=== PATIENT | female | born 1950 | race Caucasian/White ===

== ENCOUNTER 2018-07-26 12:51 | Observation (INO) ==
[2018-07-26 14:30] LABS: Basophils % 0.6 %; Eosinophils # 0.2 K/mcL (0.0-0.6); Eosinophils % 2.9 %; Hematocrit 36.5 % (35.3-44.9); Hemoglobin 11.6 g/dL (11.5-15.4); Immature Granulocytes % 0.3 % (0-4); Lymphocytes # 1.9 K/mcL (0.6-4.6); Lymphocytes % 27.8 %; Mean Corpuscular HGB Conc 31.8 g/dL (31.6-35.5); Mean Corpuscular Hemoglobin 29.5 pg (28.0-33.3); Mean Corpuscular Volume 92.9 fL (83.0-100.0); Mean Platelet Volume 10.2 fL (9.4-12.4); Monocytes # 0.4 K/mcL (0.0-1.3); Monocytes % 6.1 %; Neutrophils # 4.3 K/mcL (1.6-8.9); Platelet Count 165 K/mcL (140-400); Red Blood Count 3.93 M/mcL (3.82-4.97); Red Cell Distribution Width 12.8 % (11.5-14.5); Segmented Neutrophils % 62.3 %
[2018-07-26 14:57] LABS: BUN/Creatinine Ratio 18 (6-26); Blood Urea Nitrogen 17 mg/dL (8-23); Calcium 9.3 mg/dL (8.6-10.3); Carbon Dioxide 26 mEq/L (23-29); Chloride 106 mEq/L (98-107); Glucose 122 mg/dL (70-105); Osmolality,Calculated 293 (280-300); Potassium 4.1 mEq/L (3.5-5.1); Sodium 140 mEq/L (136-145); Troponin I < 0.03 ng/mL (< 0.04); eGFR For Non-African Americans 58 (> 60)
--- NOTE | 2018-07-26 17:01 | Emergency Department Note ---
Disposition Clinical Impression: Lower extremity edema, Shortness of breath Chest pain Qualifiers: Chest pain type: unspecified Qualified Code(s): R07.9 - Chest pain, unspecified Disposition: Admitted As Inpatient Condition: Fair Time of Disposition: 18:12 Chest Pain HPI - General Chief Complaint: ED Chest Pain Stated Complaint: Multiple complaints Time Seen by Provider: 07/26/18 16:17 Source: patient, family Limitations: no limitations Vital Signs Reviewed: Yes Nursing Notes Reviewed: Yes - History of Present Illness HPI Narrative: 67 yo female with PMHx of HTN, HLD, DM, hypothyroidism presents to the emergency department with the chief complaints of chest pain, shortness of breath, limb swelling and fatigue which started 3 days ago. She is currently scheduled to have an echo tomorrow to evaluate her heart but last night and this morning she started experiencing jaw pain and left arm weakness and numbness. The pains co me and go at random but occurred during rest. She has never had any chest pain, jaw pain or arm pain like this before. She has never had a heart attack before. There is no family history of heart problems. She was recently started on Lasix to treat the swelling and states she lost 5 pounds in the past few days. She denies fevers, chills, abdominal pain, nausea and vomiting. Severity scale (1-10): 5 - Related Data Allergies Allergy/AdvReac Type Severity Reaction Status Date / Time Sulfa (Sulfonamide Allergy Anaphylaxis Verified 07/26/18 13:14 Antibiotics) atorvastatin [From Lipitor] AdvReac Joint Pain Verified 07/26/18 13:15 All systems ED: reviewed and negative except as stated. Review of Systems: As Per HPI Constitutional: Reports: weakness. Denies: fever Cardiovascular: Reports: chest pain, dyspnea on exertion, orthopnea, edema. Denies: palpitations, paroxysmal nocturnal dyspnea Respiratory: Reports: dyspnea. Denies: cough, wheezes, hemoptysis Gastrointestinal: Denies: abdominal pain, nausea, vomiting, diarrhea Neurological: Reports: numbness, paresthesias. Denies: headache, weakness Psychiatric: Reports: anxiety Endocrine: Reports: fatigue Chest Pain PMH - Past Medical History Medical history: Reports: diabetes, fibromyalgia, hyperlipidemia, hypertension, thyroid disease - Social History Smoking Status: Never smoker Alcohol use: Reports: rarely Physical Exam - General Limitations: no limitations General appearance: alert, in no apparent distress - Head Head exam: atraumatic, normocephalic - Eye Eye exam: Present: normal appearance, PERRL, EOMI - ENT ENT exam: normal exam - Neck Neck exam: Present: normal inspection. Absent: tenderness, lymphadenopathy - Chest Chest inspection: Present: normal inspection. Absent: tenderness - Respiratory Respiratory exam: Present: normal lung sounds bilaterally - Cardiovascular Cardiovascular exam: Present: regular rate, normal rhythm - Abdominal Exam Abdominal exam: Present: soft, Non-Tender. Absent: distention, guarding, rebound, rigidity - Extremities Exam Extremities exam: Present: pedal edema (1+ pitting edema to tibial tuberosity). Absent: tenderness, calf tenderness - Neurological Exam Neurological exam: Present: alert, oriented X3 - Psychiatric Psychiatric exam: Present: normal affect, normal mood - Skin Skin exam: Present: warm, dry, intact Course Vital Signs Temperature 97.7 F 07/26/18 13:15 Pulse Rate 65 07/26/18 13:15 Respiratory Rate 15 07/26/18 13:15 Blood Pressure 161/93 07/26/18 13:15 O2 Sat by Pulse Oximetry 96 07/26/18 13:15 Temperature 97.7 F 07/26/18 13:15 Pulse Rate 54 07/26/18 17:30 Respiratory Rate 18 07/26/18 17:30 Blood Pressure 149/86 07/26/18 17:30 O2 Sat by Pulse Oximetry 96 07/26/18 17:30 Oxygen Delivery Oxygen Delivery Room Air Chest Pain - MDM Narrative Medical decision making narrative: Patient presents with chest pain, shortness of breath, increased edema and multiple risk factors for cardiac etiology. Lab work from triage, EKG and chest x-ray did not demonstrate any acute abnormalities. We will add on a urinalysis as the patient complains of gross hematuria as well as a TSH for her history of hypothyroidism and work on admitting the patient to the hospital for cardiac workup. 1744 - TSH is within normal limits. Urine shows large amounts of gross blood without signs of infection. Hospitalist has been paged for admission at this time. 1809 - Hospitalist has accepted pt for admission - Medical Records Medical records reviewed: Yes I reviewed the patient's medical records. - Lab Data Lab results reviewed: Yes I reviewed the patient's lab results. Result diagrams: 07/26/18 13:31 07/26/18 13:31 Lab Results 07/26/18 07/26/18 07/26/18 Range/Units 13:31 13:31 16:47 WBC 6.8 (4.3-11.1) K/mcL RBC 3.93 (3.82-4.97) M/mcL Hgb 11.6 (11.5-15.4) g/dL Hct 36.5 (35.3-44.9) % MCV 92.9 (83.0-100.0) fL MCH 29.5 (28.0-33.3) pg MCHC 31.8 (31.6-35.5) g/dL RDW 12.8 (11.5-14.5) % Plt Count 165 (140-400) K/mcL MPV 10.2 (9.4-12.4) fL Immature Gran % 0.3 (0-4) % Seg Neutrophils % 62.3 % Lymphocytes % 27.8 % Monocytes % 6.1 % Eosinophils % 2.9 % Basophils % 0.6 % Neutrophils # 4.3 (1.6-8.9) K/mcL Lymphocytes # 1.9 (0.6-4.6) K/mcL Monocytes # 0.4 (0.0-1.3) K/mcL Eosinophils # 0.2 (0.0-0.6) K/mcL Basophils # 0.0 (0.0-0.2) K/mcL Sodium 140 (136-145) mEq/L Potassium 4.1 (3.5-5.1) mEq/L Chloride 106 (98-107) mEq/L Carbon Dioxide 26 (23-29) mEq/L BUN 17 (8-23) mg/dL Creatinine 0.96 (0.60-1.20) mg/dL Est GFR ( Amer) > 60 (> 60) Est GFR (Non-Af Amer) 58 L (> 60) BUN/Creatinine Ratio 18 (6-26) Glucose 122 H (70-105) mg/dL Calculated Osmolality 293 (280-300) Calcium 9.3 (8.6-10.3) mg/dL Troponin I < 0.03 (< 0.04) ng/mL TSH 2.447 (0.340-5.600) mcIU/mL Urine Color Yellow (Yellow) Urine Clarity Cloudy A (Clear) Urine pH 5.0 (5.0-8.0) pH Units Ur Specific [place] 1.020 (1.010-1.025) Urine Protein 30 H (Neg-Trace) mg/dL Urine Glucose (UA) Normal (Normal) mg/dL Urine Ketones Negative (Negative) mg/dL Urine Blood Large H (Negative) Urine Nitrite Negative (Negative) Urine Bilirubin Negative (Negative) Urine Urobilinogen Normal (Normal) mg/dL Ur Leukocyte Esterase Moderate H (Negative) Urine Microscopic RBC 50-100 H (0-3) per hpf Urine Microscopic WBC 30-50 H (0-3) per hpf Ur Squamous Epith Cells Many H (None-Few) per lpf Urine Bacteria Few (None-Few) per hpf Hyaline Casts None Seen (None-Few) per lpf Ur Culture Indicated? NO. A (NO) - Radiology Data Radiology results reviewed: Yes I reviewed the patient's radiology results. - EKG Data EKG attestation: Yes I reviewed and interpreted this EKG. EKG results narrative: EKG obtained at 13:19 on 07/26/2018 Heart rate 59 bpm, [place] interval 172, QRS duration 86, QT 429, QTC 428 Sinus bradycardia with low voltage. No ST segment elevations or depressions. No old EKG for comparison. Heart Score - Score History: Moderately Suspicious EKG: Normal Age: Greater than 65 Risk Factors: Equal/Greater than 3 risk factor or history of atherosclerotic disease Troponin: Less than normal limit HEART Score Total: 5 Attestation Statement - Attestation Attestation: I, Isidro Campbell, examined this patient and my medical decision-making was reviewed with the TELESALES REPRESENTATIVE/PA/Advanced Practice Nurse/Resident Physician. I agree with the documented findings, disposition and treatment plan as described except to the extent set forth below. 67-year-old female presents emergency Department with multiple complaints. Patient states with past few weeks she has had increased exertional dyspnea, exertional chest pain, left jaw pain, bilateral lower extremity swelling. Patient states symptoms have been worsening over the past few days and then today have started to come while she is at rest. Patient describes pain as an aching in her left upper chest without radiation. Patient denies fever, chills, nausea, vomiting, diarrhea. Laboratory evaluation did not show significant abnormality. EKG did not show evidence of STEMI or other dysrhythmia. Patient will be admitted to hospitalist for further care and evaluation of her likely unstable angina.
[2018-07-26 17:12] LABS: Bilirubin,Urine Negative (Negative); Blood,Urine Large (Negative); Clarity,Urine Cloudy (Clear); Color,Urine Yellow (Yellow); Glucose,Urine (UA) Normal (Normal); Ketones,Urine Negative (Negative); Leukocyte Esterase,Urine Moderate (Negative); Nitrite,Urine Negative (Negative); Protein,Urine 30 mg/dL (Neg-Trace); Urobilinogen,Urine Normal (Normal)
[2018-07-26 17:14] LABS: Bacteria,Urine Few per hpf (None-Few); Hyaline Casts,Urine None Seen per lpf (None-Few); RBC,Urine 50-100 per hpf (0-3); Squamous Epithelial Cell,Urine Many per lpf (None-Few); WBC,Urine 30-50 per hpf (0-3)
[2018-07-26 17:15] LABS: Thyroid Stimulating Hormone 2.447 mcIU/mL (0.340-5.600)
--- NOTE | 2018-07-27 06:26 | Electrocardiograph Report ---
[facility] Test Date: 2018-07-26 Pat Name: Kaylee Jessica Department: 104 Room: 3B41 Gender: F Radio Artist: Mariano : 1950 Requested By: Suzie See Order Number: [id number] Reading MD: Raheem Proctor Measurements Intervals [place] Rate: 59 P: 16 [place]: 172 QRS: -11 QRSD: 86 T: -6 QT: 429 QTc: 428 Interpretive Statements SINUS BRADYCARDIA Electronically Signed On 07-27-2018 6:24:17 EDT by Raheem Proctor
[2018-07-27] MEDS ORDERED: Naloxone 0.4 MG/ML INJ IVP PRN (07:10)
[2018-07-27] MEDS ORDERED: Dextrose Gel 15 GM/37.5 ML TUBE PO PRN ×2 (07:14)
[2018-07-27] MEDS ORDERED: D5% in Water 1,000 ML IVC PRN (07:14)
[2018-07-27] MEDS ORDERED: *HR* Dextrose 50 % in Water (Syg) 50 ML SYRINGE IVP PRN (07:14)
--- NOTE | 2018-07-27 07:30 | Internal Med History&Physical ---
Date of Encounter: 07/27/18 Time of Encounter: 04:30 Internal Medicine - H&P: HPI Chief complaint: Chest Pain Admitted From: Home Plans for Post Hospital Care: Home History of present illness: Ms. Jessica is a 67 year old female with past medical history significant for hypertension, hyperlipidemia, diabetes, thyroid disease, and fibromyalgia who presents for complaints of intermittent left sided chest pain, lower extremity edema, and shortness of breath for past three days. Was recently started on Lasix for edema by PCP and reportedly lost five pounds after starting medication. PCP also ordered echocardiogram but chest pain started radiating to her jaw and down left arm so she decided to come to ER for further evaluation. Also reports one episode of numbness and tingling radiating down left arm that has since resolved. Also reports intermittent hematuria over past month for which she saw PCP and UTI was ruled out at that time. Reports hematuria with UTI's in past but denies any other current urinary symptoms. ER reported EKG as sinus bradycardia with no ST elevation or depression. ER also obtained chest xray which showed small pleural effusions with minimal bibasilar atelectasis. ER obtained UA which showed large amount of blood and moderate leukocyte esterase but with many epithelial cells. Currently denies any headache, numbness, tingling, chest pain, shortness of breath, abdominal pain, bowel or bladder changes. Denies any previous echocardiogram, stress tests, or catheterizations. Checks blood sugars regularly and reports they have been averaging in 140's. Follows regularly with PCP but denies any other regular follow ups. Past Med Surg Social Fam HX - Past Medical History Medical history: diabetes, fibromyalgia, hyperlipidemia, hypertension, thyroid disease - Past Surgical History Additional surgical history: cyst removed from ovary - Social History Smoking Status: Never smoker Smokeless Tobacco Status: No Alcohol use: rarely Drug use: none Internal Medicine - H&P: Meds Allergy/AdvReac Type Severity Reaction Status Date / Time Sulfa (Sulfonamide Allergy Anaphylaxis Verified 07/26/18 13:14 Antibiotics) atorvastatin [From Lipitor] AdvReac Joint Pain Verified 07/26/18 13:15 All Systems PM: A 10-system review of systems was performed and is negative for pertinent findings except as documented above in the HPI. - Constitutional Vitals: Temp Pulse Resp BP Pulse Ox 98.2 F 60 15 156/91 92 07/27/18 06:35 07/27/18 06:35 07/27/18 06:35 07/27/18 06:35 07/27/18 06:35 Exam: General: Alert and oriented. Skin:Normal color, no rash, no lesions. HEENT:Pupils equal, round and reactive. Cardiovascular:Normal S1 & S2, no rubs, murmurs or gallops. No JVD. Pulse regular. Lungs:Breath sounds decreased, no wheezes or crackles. Abdomen:Soft, non-tender, no rigidity. Extremities:No deformity, tenderness, or clubbing. Non pitting edema noted to bilateral lower extremities. RLE slightly larger than left which patient reports is chronic for her. Neurological:Normal cognition and motor skills. Pulses:Carotid and radial pulses normal +2. Rest of the physical exam is non contributory. Internal Med - H&P Results - Labs CBC & Chem 7: 07/26/18 13:31 07/26/18 13:31 Labs: Short CBC 07/26/18 Range/Units 13:31 WBC 6.8 (4.3-11.1) K/mcL Hgb 11.6 (11.5-15.4) g/dL Hct 36.5 (35.3-44.9) % Plt Count 165 (140-400) K/mcL Neutrophils # 4.3 (1.6-8.9) K/mcL BMP 07/26/18 13:31 Sodium 140 Potassium 4.1 Chloride 106 Carbon Dioxide 26 BUN 17 Creatinine 0.96 Glucose 122 H Calcium 9.3 Cardiac Enzymes 07/26/18 07/27/18 Range/Units 13:31 02:44 Troponin I < 0.03 < 0.03 (< 0.04) ng/mL Urine 07/26/18 Range/Units 16:47 Urine Color Yellow (Yellow) Urine Clarity Cloudy A (Clear) Urine pH 5.0 (5.0-8.0) pH Units Ur Specific [place] 1.020 (1.010-1.025) Urine Protein 30 H (Neg-Trace) mg/dL Urine Glucose (UA) Normal (Normal) mg/dL - Impressions ITS Impressions Chest X-Ray 07/26/18 13:22 IMPRESSION: Small pleural effusions with minimal bibasilar atelectasis. D/ / 07/26/2018 14:03:39 Aldair Naidu MD / lgray Interpreting Provider: Aldair Naidu MD - Assessment and Plan (1) Chest pain Current Visit: Yes Status: Acute Assessment and plan: Currently denies any pain. Continuous cardiac monitoring. Initial troponin negative, serial troponins ordered. Stress test and echocardiogram ordered. NPO. Qualifiers: Chest pain type: unspecified Qualified Code(s): R07.9 - Chest pain, unspecified (2) Decreased GFR Current Visit: Yes Status: Acute Assessment and plan: Slightly decreased GFR at 58, BUN and creatinine normal. Repeat labs ordered. (3) Hematuria Current Visit: Yes Status: Acute Assessment and plan: Intermittent over past month. Could be secondary to UTI but denies any other current urinary symptoms. UA obtained in ER appears contaminated, repeat UA ordered. Qualifiers: Hematuria type: unspecified type Qualified Code(s): R31.9 - Hematuria, unspecified (4) Pleural effusion Current Visit: Yes Status: Acute Assessment and plan: Continue home lasix. Monitor respiratory status. (5) Lower extremity edema Current Visit: Yes Status: Acute Assessment and plan: Continue home lasix. Echocardiogram ordered. (6) Diabetes mellitus Current Visit: Yes Status: Chronic Assessment and plan: Accucheck q6 hours. Sliding scale insulin. Hold home medications. Qualifiers: Diabetes mellitus type: type 2 Diabetes mellitus assisted insulin use: unspecified assisted insulin use status Qualified Code(s): E11.9 - Type 2 diabetes mellitus without complications - Time Spent With Patient Total time spent is greater than 50% in coordination of care (as documented) at patient's floor/unit and/or counseling patient:
[2018-07-27] MEDS ORDERED: Regadenoson 0.4 MG/5 ML SYRINGE IVP ONE (08:44)
[2018-07-27 09:35] LABS: Basophils % 0.7 %; Eosinophils # 0.2 K/mcL (0.0-0.6); Eosinophils % 2.9 %; Hematocrit 36.1 % (35.3-44.9); Hemoglobin 11.7 g/dL (11.5-15.4); Immature Granulocytes % 0.3 % (0-4); Lymphocytes # 1.6 K/mcL (0.6-4.6); Lymphocytes % 26.7 %; Mean Corpuscular HGB Conc 32.4 g/dL (31.6-35.5); Mean Corpuscular Hemoglobin 29.4 pg (28.0-33.3); Mean Corpuscular Volume 90.7 fL (83.0-100.0); Monocytes # 0.4 K/mcL (0.0-1.3); Neutrophils # 3.7 K/mcL (1.6-8.9); Platelet Count 151 K/mcL (140-400); Red Blood Count 3.98 M/mcL (3.82-4.97); Red Cell Distribution Width 13.2 % (11.5-14.5); Segmented Neutrophils % 63.4 %
[2018-07-27 09:52] LABS: BUN/Creatinine Ratio 18 (6-26); Blood Urea Nitrogen 16 mg/dL (8-23); Calcium 9.7 mg/dL (8.6-10.3); Carbon Dioxide 27 mEq/L (23-29); Chloride 105 mEq/L (98-107); Glucose 146 mg/dL (70-105); Osmolality,Calculated 296 (280-300); Sodium 141 mEq/L (136-145); eGFR For Non-African Americans > 60 (> 60)
[2018-07-27] MEDS ORDERED: Insulin LISPRO 300 UNITS/3 ML VIAL SQ SCH ×2 (12:00→21:00)
[2018-07-27] MEDS: Insulin LISPRO 300 UNITS/3 ML VIAL SQ SCH ×2 (13:16→17:47)
[2018-07-27 13:31] LABS: Bilirubin,Urine Negative (Negative); Blood,Urine Large (Negative); Clarity,Urine Cloudy (Clear); Color,Urine Yellow (Yellow); Glucose,Urine (UA) Normal (Normal); Ketones,Urine Negative (Negative); Leukocyte Esterase,Urine Small (Negative); Nitrite,Urine Negative (Negative); PH,Urine 6.5 pH Units (5.0-8.0); Protein,Urine Trace mg/dL (Neg-Trace); Specific Gravity,Urine 1.008 (1.010-1.025); Urobilinogen,Urine Normal (Normal)
[2018-07-27 13:33] LABS: Bacteria,Urine None Seen per hpf (None-Few); Hyaline Casts,Urine None Seen per lpf (None-Few); Squamous Epithelial Cell,Urine Many per lpf (None-Few)
[2018-07-27] MEDS ORDERED: Acetaminophen 325 MG TABLET PO PRN (23:14)
[2018-07-28] MEDS: Insulin LISPRO 300 UNITS/3 ML VIAL SQ SCH ×2 (08:24→12:16)
--- NOTE | 2018-07-28 11:32 | Discharge Summary ---
- NOTES TO OUTPATIENT PROVIDER Notes to Outpatient Provider: f/u with PCP within a week. Orders not resulted at time of discharge: Pending orders 07/27/18 07:35 NM jennifer perf SPECT multi [NM] Routine Date of Encounter: 07/28/18 Time of Encounter: 11:29 - Discharge Diagnosis (1) Chest pain Priority: Primary Status: Acute Qualifiers: Chest pain type: unspecified Qualified Code(s): R07.9 - Chest pain, unspecified (2) Lower extremity edema Priority: Primary Status: Acute (3) Decreased GFR Priority: Secondary Status: Chronic (4) Hematuria Priority: Secondary Status: Chronic Qualifiers: Hematuria type: unspecified type Qualified Code(s): R31.9 - Hematuria, unspecified (5) Diabetes mellitus Priority: Secondary Status: Chronic Qualifiers: Diabetes mellitus type: type 2 Diabetes mellitus snf insulin use: 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 Jessica is a 67 year old female with past medical history significant for hypertension, hyperlipidemia, diabetes, thyroid disease, and fibromyalgia who presents for complaints of intermittent left sided chest pain, lower extremity edema, and shortness of breath for past three days. Was recently started on Lasix for edema by PCP and reportedly lost five pounds after starting medicati on. PCP also ordered echocardiogram but chest pain started radiating to her jaw and down left arm so she decided to come to ER for further evaluation. Also reports one episode of numbness and tingling radiating down left arm that has since resolved. Also reports intermittent hematuria over past month for which she saw PCP and UTI was ruled out at that time. Reports hematuria with UTI's in past but denies any other current urinary symptoms. ER reported EKG as sinus bradycardia with no ST elevation or depression. ER also obtained chest xray which showed small pleural effusions with minimal bibasilar atelectasis. ER obtained UA which showed large amount of blood and moderate leukocyte esterase but with many epithelial cells. Currently denies any headache, numbness, tingling, chest pain, shortness of breath, abdominal pain, bowel or bladder changes. Denies any previous echocardiogram, stress tests, or catheterizations. Checks blood sugars regularly and reports they have been averaging in 140's. Follows regularly with PCP but denies any other regular follow ups. Her ECHO and stress test are both normal. She is currently pain free. She is discharged home, f/u with PCP within a week. Time spent discussing smoking cessation with patient: more than 10 minutes - Time Spent with Patient Total time spent providing and/or coordinating discharge services: Time spent: Greater than 30 minutes - Discharge Medications Prescriptions: Continue SitaGLIPtin [Januvia] 100 mg PO DAILY Lisinopril 2.5 mg PO DAILY Fenofibrate Nanocrystallized [Fenofibrate] 145 mg PO DAILY Celecoxib [Celebrex] 200 mg PO BID Atenolol [Tenormin] 50 mg PO DAILY Levothyroxine [Synthroid] 25 mcg PO DAILY Duloxetine HCl [Cymbalta] 60 mg PO DAILY Potassium Chloride [K-Tab ER] 20 meq PO DAILY Furosemide [Lasix] 20 mg PO DAILY Meloxicam [Mobic] 7.5 mg PO BID PRN PRN Reason: Pain Acetaminophen [Tylenol Arthritis] 1,950 mg PO HS PRN PRN Reason: Pain Baclofen [Lioresal] 10 mg PO BID PRN PRN Reason: Muscle Spasm Vitamin E 400 unit PO DAILY Home Medications: Acetaminophen [Tylenol Arthritis] 1,950 mg PO HS PRN 07/27/18 [History] Atenolol [Tenormin] 50 mg PO DAILY 07/27/18 [History] Baclofen [Lioresal] 10 mg PO BID PRN 07/27/18 [History] Celecoxib [Celebrex] 200 mg PO BID 07/27/18 [History] Duloxetine HCl [Cymbalta] 60 mg PO DAILY 07/27/18 [History] Fenofibrate Nanocrystallized [Fenofibrate] 145 mg PO DAILY 07/27/18 [History] Furosemide [Lasix] 20 mg PO DAILY 07/27/18 [History] Levothyroxine [Synthroid] 25 mcg PO DAILY 07/27/18 [History] Lisinopril 2.5 mg PO DAILY 07/27/18 [History] Meloxicam [Mobic] 7.5 mg PO BID PRN 07/27/18 [History] Potassium Chloride [K-Tab ER] 20 meq PO DAILY 07/27/18 [History] SitaGLIPtin [Januvia] 100 mg PO DAILY 07/27/18 [History] Vitamin E 400 unit PO DAILY 07/27/18 [History] Allergies/Adverse Reactions: Allergy/AdvReac Type Severity Reaction Status Date / Time Sulfa (Sulfonamide Allergy Anaphylaxis Verified 07/27/18 19:38 Antibiotics) atorvastatin [From Lipitor] AdvReac Joint Pain Verified 07/27/18 19:38 Date of admission: 07/26/18 19:55 Primary care physician: Chuck Salter Anticipated date of discharge: 07/28/18 - Constitutional Vitals: Temp Pulse Resp BP Pulse Ox 98.1 F 63 17 152/90 94 07/28/18 07:09 07/28/18 07:09 07/28/18 07:09 07/28/18 07:09 07/28/18 09:00 General appearance: Present: A&O X 3 Exam: General: Alert and oriented. Skin:Normal color, no rash, no lesions. HEENT:Pupils equal, round and reactive. Cardiovascular:Normal S1 & S2, no rubs, murmurs or gallops. No JVD. Pulse regular. Lungs:Breath sounds decreased, no wheezes or crackles. Abdomen:Soft, non-tender, no rigidity. Extremities:No deformity, tenderness, or clubbing. Non pitting edema noted to bilateral lower extremities. RLE slightly larger than left which patient reports is chronic for her. Neurological:Normal cognition and motor skills. Pulses:Carotid and radial pulses normal +2. Rest of the physical exam is non contributory. - Patient Status Disposition: Home, Self-Care Condition: Fair Functional capacity at discharge: independent ambulation Overall status at discharge: patient is progressing back to baseline - Discharge Instructions Follow Up With: Chuck Salter DO [Primary Care Provider] - 08/02/18 1:15 pm - Diet and Activity Activity: increase activity as tolerated Diet: diabetic diet, low fat, low cholesterol, low salt diet
[2018-07-28 12:04] VITALS: BP 153/81
== END 2018-07-28 14:04 | disposition home or self-care (01) ==
LOC: 3BNU 12:51 → EMEROOARM 12:51 → 3BNU 20:17
PROVIDERS: ADMIT Internal Medicine Nephrology; ATTEND Internal Medicine Nephrology